=== PATIENT | male | born 1955 | race Caucasian/White ===

== ENCOUNTER 2020-10-30 13:34 | Emergency (ER) | payer MEDICARE, OTHER ==
[~2020-10-30] VITALS: Ht 180.3 cm; Wt 113.4 kg
[2020-10-30] MEDS ORDERED: METFORMIN HCL500 MG PO (17:33)
[2020-10-30] MEDS ORDERED: ELIQUIS2.5 MG PO (17:34)
[2020-10-30] MEDS ORDERED: ABILIFY5 MG PO (17:36)
[2020-10-30] MEDS ORDERED: GLIPIZIDE ER10 MG PO (17:36)
[2020-10-30] MEDS ORDERED: DRIZALMA SPRINK60 MG PO (17:36)
[2020-10-30] MEDS ORDERED: CARBIDOPA-LEVO1 EA10 PO (17:36)
[2020-10-30] MEDS ORDERED: GLUCOPHAGE1000 MG PO (17:37)
[2020-10-30] MEDS ORDERED: TRIHEXYPHENIDYL5 MG PO (17:37)
[2020-10-30] MEDS ORDERED: LIPITOR40 MG PO (17:37)
[2020-10-30] MEDS ORDERED: BASAGLAR K100 UNIT/1 SQ (17:38)
[2020-10-30] MEDS ORDERED: ELIQUIS5 MG PO (17:38)
[2020-10-30] MEDS ORDERED: LAMICTAL25 MG PO (17:39)
[2020-10-30] MEDS ORDERED: PROTONIX40 MG PO (17:39)
[2020-10-30] MEDS ORDERED: NOVOLOG FL100 UNIT/1 SUB-Q (17:39)
== END 2020-10-30 19:15 | disposition home or self-care (01) ==
LOC: ED 13:34
DX: J06.9 Acute upper respiratory infection, unspecified (principal); I25.2 Old myocardial infarction; Z86.73 Personal history of transient ischemic attack (TIA), and cerebral infarction without residual deficits; Z79.899 Other long term (current) drug therapy; Z79.4 Long term (current) use of insulin
CPT/HCPCS: 99283; C9803; U0003

== ENCOUNTER 2021-07-01 11:46 | Emergency (ER) | payer MEDICARE, OTHER ==
[~2021-07-01] VITALS: Ht 180.3 cm; Wt 114.3 kg
[~2021-07-01 11:46] MED LIST: ABILIFY5 MG PO; BASAGLAR K100 UNIT/1 SQ; CARBIDOPA-LEVO1 EA10 PO; DRIZALMA SPRINK60 MG PO; ELIQUIS2.5 MG PO; ELIQUIS5 MG PO; GLIPIZIDE ER10 MG PO; GLUCOPHAGE1000 MG PO; LAMICTAL25 MG PO; LIPITOR40 MG PO; METFORMIN HCL500 MG PO; NOVOLOG FL100 UNIT/1 SUB-Q; PROTONIX40 MG PO; TRIHEXYPHENIDYL5 MG PO
== END 2021-07-01 15:57 | disposition home or self-care (01) ==
LOC: ED 11:46
DX: U07.1 COVID-19 (principal); I25.2 Old myocardial infarction; Z87.891 Personal history of nicotine dependence; Z79.899 Other long term (current) drug therapy; Z79.82 Long term (current) use of aspirin; Z79.4 Long term (current) use of insulin
CPT/HCPCS: 99283-25; M0243; Q0244

== ENCOUNTER 2022-11-28 15:52 | Observation (INO) | payer MEDICARE, OTHER ==
[~2022-11-28] VITALS: Ht 180.3 cm; Wt 114.0 kg
[~2022-11-28 15:52] MED LIST changes: -BASAGLAR K100 UNIT/1 SQ; +BASAGLAR K100 UNIT/1 SUB-Q
--- OUTSIDE RECORDS SUMMARY | 2022-11-28 15:55 | XMS ---
PreManage Notification: LEANN MCDERMOTT Security Director Clinical Pharmacology Events No recent Security Events currently on file CRITERIA MET - PDMP CARE PROVIDERS DANNY HARRIS 12/02/2019-Current PHONE: Unknown Preethi has no Care Guidelines for this patient. E.Arslan VISIT COUNT (12 MO.) 1 [facility] 1 LULA Costello TOTAL 2 NOTE: Visits indicate total known visits. ED/C VISIT TRACKING (12 MO.) 11/28/2022 15:52 [facility] [place] TYPE: Emergency COMPLAINT: - POSS STROKE 05/11/2022 17:24 [facility] [place] TYPE: Emergency DIAGNOSES: - Chest Pain - Dyspnea, unspecified - Chest pain, unspecified - Atherosclerotic heart disease of [place] coronary artery without angina pectoris - Shortness of Breath INPATIENT VISIT TRACKING (12 MO.) 05/11/2022 17:24 [facility] [place] TYPE: Cardiology DIAGNOSES: - Dyspnea, unspecified - Other forms of dyspnea - Chest pain, unspecified - Atherosclerotic heart disease of [place] coronary artery with other forms of angina pectoris - Unspecified injury of head, initial encounter - 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
[2022-11-28] MEDS ORDERED: OXYCODONE HCL5 MG PO (19:10)
--- NOTE | 2022-11-28 21:15 | NUR ---
ASSUMED CARE OF PATIENT UPON RECEIVING BEDSIDE HANDOFF REPORT FROM ED NURSE IN ED. TRANSPORTED PT TO CCU ON STRETCHER. TRANSFERRED PT TO BED. PT AOX4, PT WITH INTRACTABLE LEFT SHOULDER PAIN. WILL MEDICATE PER MAR AND UTILIZE COLD THERAPY WITH ICE PACKS. REMAINS AT BEDSIDE. WILL CONTINUE TO MONITOR AND FOLLOW POC.
--- NOTE | 2022-11-29 | NUR ---
Repeat assessment performed with no acute change since previous assessment unless noted. All vital signs stable with no complaints or indications of respiratory distress, fever or pain. Compazine 10mg IVP was administered for complaints of nausea. Will continue to monitor.
--- NOTE | 2022-11-29 07:04 | NUR ---
PT WITH NO ADVERSE OVERNIGHT EVENTS. VSS, PAIN BEING CONTROLLED WITH PHARMACOLOGIC AND COLD THERAPY. AT BEDSIDE. PT WITH NO OTHER C/O. PT WITH SLING TO LEFT SHOULDER. BEDSIDE HANDOFF REPORT GIVEN TO DAY NURSE.
--- NOTE | 2022-11-29 08:17 | NUR ---
IN PATIENT'S ROOM FOR ASSESSMENT, VITALS, AND BREAKFAST. PT'S CBG 159 THIS AM. PT ALERT, ORIENTED, AND CONVERSING. PT'S SUSY IN ROOM AND ATTENTIVE TO PATIENT. BREAKFAST BROUGHT INTO ROOM. PT STATES PAIN IS TOLERABLE WHEN LAYING IN BED AND NOT MOVING, BUT WHEN MOVING, PAIN IS VERY SEVERE. CMS IS INTACT ON LEFT ARM. PLAN OF CARE DISCUSSED. IVF CONTINUE AT 125 ML/HR. CONTINUE TO MONITOR.
[2022-11-29] MEDS ORDERED: FLUDROCORTISON0.1 MG PO (08:47)
[2022-11-29] MEDS ORDERED: DULOXETINE HCL60 MG PO (08:47)
[2022-11-29] MEDS ORDERED: GLIPIZIDE ER2.5 MG PO (08:49)
[2022-11-29] MEDS ORDERED: OMEPRAZOLE20 MG PO (08:56)
[2022-11-29] MEDS ORDERED: CLOPIDOGREL75 MG PO (08:57)
--- NOTE | 2022-11-29 09:10 | NUR ---
Spoke with pt and . Pt is very painful in his L shoulder. states concern about pt going home. Pt is on pain medication and does not want assistance or agree to any suggestions makes. They live in a house with 0 steps. Toilet is low and does not have a rail. Pt has a walker at home, but will not be able to use due to his fx shoulder. Blood sugars have stabilized, states pt has issue with balance as he has Parkinsons. also has questions where pt will need to follow up for his shoulder surgery. I will contact Dr. Hay.
--- NOTE | 2022-11-29 10:00 | NUR ---
Texted Dr. Hay and asked who he would recommend for Ortho for this pt. Let him know the wants to stay close to [place]. He suggested Dr. Cavazos in [place]. Name and phone number given to . Let her know she needs to contact her PCP for a referral. is wanting a wc for this pt. Let her know PT suggested a cane. Pt is refusing a wc. Gave the infor for [employer] lending closet and encouraged to get a cane and a wc if this is her desire. She states she will not be able to lift pt. Pt will stay one more day per Dr. Palacios for PT.
[2022-11-29] MEDS ORDERED: CARBIDOPA-LEVO1 EAC5 PO (10:15)
[2022-11-29] MEDS ORDERED: TAMSULOSIN HCL0.4 MG PO (10:16)
[2022-11-29] MEDS ORDERED: METFORMIN HCL500 M1 PO (10:17)
--- NOTE | 2022-11-29 10:23 | NUR ---
PATIENT UP TO CHAIR WITH 2 PERSON ASSIST. PT TOLERATED THIS FAIR, BUT DID HAVE A FAIRLY SIGNIFICANT INCREASE IN PAIN WITH MOVEMENT. 2ND DOSE OF OXYCODONE GIVEN AT THIS TIME WELL TYLENOL. PHYS THERAPY IN ROOM AT THIS TIME TO HELP. BED LINEN CHANGED. WARM BLANKET GIVEN. PT'S VERY APPREHENSIVE ABOUT TAKING PATIENT HOME TODAY AND WOULD LIKE HIM TO STAY ANOTHER DAY IF POSSIBLE. WILL DISCUSS WITH MD ALL OF THESE THINGS.
--- NOTE | 2022-11-29 12:00 | NUR ---
VITALS CHARTED. PATIENT SITTING IN RECLINER, LEGS ELEVATED. IN ROOM. LUNCH PROVIDED, LEGS LOWERED AND PATIENT SITTING STRAIGHT TO EAT, FRESH ICE WATER PROVIDED. PATIENT VERY PAINFUL WITH MOVEMENT.
--- NOTE | 2022-11-29 12:04 | NUR ---
PT ALERT, ORIENTED AND SITTING IN CHAIR WITH L SHOULDER/ARM IMMOBILIZED. PT IS VISITING WITH SON HIRO. GOOD VISIT, PT SAID HE IS NO LONGER PRACTICING [employer] ZOROASTRIANISM. MORE FAMILY ARRIVE, GAVE BLESS AND G.POST.
--- NOTE | 2022-11-29 12:59 | NUR ---
PATIENT HELPED BACK TO BED AND IS NOW RESTING. PT'S REMAINS IN ROOM. PLAN OF CARE DISCUSSED. PT GIVEN NEXT DOSE OF PAIN MEDICATION - SEE EMAR. PT HAS CONTINUED TO HAVE 9/10 PAIN IN THAT LEFT SHOULDER. ICE APPLIED. PT WILL TRANSFER TO THE MEDICAL FLOOR TODAY WITHOUT TELEMETRY.
--- NOTE | 2022-11-29 13:08 | EKG ---
[facility] [address] [facility] [place] [address] Signed Normal sinus rhythm Prolonged QT Abnormal ECG No previous ECGs available Confirmed by PAULO PATIÑO MD ([id number]) on 11/29/2022 1:08:12 PM Electronically Signed By: PAULO PATIÑO MD 11/29/22 1308 PATIENT NAME: LEANN MCDERMOTT Electrocardiogram DATE OF : 55 PHYSICIAN: PAULO PATIÑO MD REPORT #: [id number] REPORT IS CONFIDENTIAL AND NOT TO BE RELEASED WITHOUT AUTHORIZATION
--- NOTE | 2022-11-29 13:51 | NUR ---
PATIENT STOOD TO VOID WITH THE HELP OF THIS RN. PT ABLE TO VOID 200 ML OF CONCENTRATED URINE. ENCOURAGED PATIENT TO INCREASE ORAL INTAKE. PT AGREEABLE. REPORT GIVEN TO RN ON MED/SURG WHO WILL RESUME CARE OF PATIENT. PATIENT TRANSFERRED IN BED TO ROOM 114, ALONG WITH ALL PERSONAL BELONGINGS.
--- NOTE | 2022-11-29 13:53 | NUR ---
CRYO CUFF BEING SET UP FOR PATIENT TO GO HOME WITH.
--- NOTE | 2022-11-29 14:04 | NUR ---
Received report from Merlyn at CCU. Pt brought over in bed to Med Surg.
[2022-11-29] MEDS ORDERED: OXYCODONE-ACET1 EAC1 PO (14:27)
--- NOTE | 2022-11-29 14:28 | NUR ---
MED REC COMPLETE
--- NOTE | 2022-11-29 15:04 | NUR ---
PATIENT RESTING IN BED WITH FAMILY IN THE ROOM. FAMILY IS CALLING MULTIPLE ORTHO SURGEONS TRYING TO FIND A PLACE PATIENT CAN GO FOR SURGERY. FAMILY IS VERY STRESSED OUT TRYING TO GET RECORDS SENT OVER TO PLACES. PT GIVEN PAIN MEDICATIONS, CRYO CUFF THERAPY GOING ON LEFT SHOULDER.
--- NOTE | 2022-11-29 17:31 | NUR ---
PATIENT EATTING DINNER SITTING UP IN BED WITH FAMILY IN THE ROOM. PT STILL C/O PAIN. MEDICATIONS GIVEN, CRYO CUFF ON LEFT SHOULDER.
--- NOTE | 2022-11-29 19:25 | NUR ---
HANDOFF REPORT RECEIVED FROM DAY SHIFT RN. PT RESTING IN BED. ARM IN SLING. PT STATES PAIN IS OK AT THIS TIME. PT DENIES NEEDS, FAMILY AT BEDSIDE.
--- NOTE | 2022-11-29 21:15 | NUR ---
PT STANDING AT EDGE OF BED, USING URINAL WITH ASSISTANCE FROM , THEN SITTING AT EDGE OF BED. PT ON ROOM AIR, LUNG SOUNDS CLEAR, DENIES SOB. PT WITH REPORT OF PAIN 10/10 TO LEFT SHOULDER WITH ANY MOVEMENT 8/10 WITH REST, GIVEN 10 MG OXYCODONE AND 1000 MG TYLENOL, DISCUSSED MORPHINE FOR ADDITIONAL PAIN MEDICATION AND WILL REASSESS. BOWEL TONES ACTIVE, DENIES NAUSEA. CMS INTACT, WITHOUT EDEMA, DENIES CALF PAIN. BLOOD GLUCOSE 271, GIVEN 3 UNITS SS HUMALOG. DISCUSSED PLAN OF CARE FOR THE EVENING. PT ASSISTED TO LAYING IN BED. CRYOCUFF FILLED WITH ICE. PT DENIES OTHER NEEDS AT THIS TIME.
--- NOTE | 2022-11-29 21:30 | NUR ---
CRYO CUFF FILLED WITH ICE.
--- NOTE | 2022-11-29 21:43 | NUR ---
PT RATING PAIN 7/10 AND DECREASING, DECLINING MORPHINE AT THIS TIME, DISCUSSED TO CALL NEEDED. PT DENIES OTHER NEEDS AT THIS TIME.
--- NOTE | 2022-11-30 00:45 | NUR ---
PT CAME TO NURSES STATION FOR WATER, PROVIDED. PT RESTING IN BED, RATING PAIN 4/10 AT THIS TIME, JUST RETURNED FROM THE BATHROOM AND STATES PAIN WAS NOT SEVERE PREVIOUS MOVEMENT. GIVEN 10 MG OXYCODONE PER PT REQUEST. PT BLOOD GLUCOSE 266 GIVEN 3 UNITS SS HUMALOG. PT REPOSITIONED IN BED. ICE REPLENISHED IN CRYOCUFF. PT DENIES OTHER NEEDS AT THIS TIME.
--- NOTE | 2022-11-30 01:30 | NUR ---
PT RESTING IN BED. PT RATING PAIN 10/10, UNABLE TO GET COMFORTABLE, THROBBING IN LEFT SHOULDER. GIVEN 4 MG IV MORPHINE. IV X2 FLUSHED. DRESSING TO RIGHT WRIST IV CHANGED. PT DENIES OTHER NEEDS AT THIS TIME, RESTING ON COUCH.
--- NOTE | 2022-11-30 02:15 | NUR ---
REPORT RECEIVED FROM AMIRA MAHONEY. ASSUMED CARE OF pt.
--- NOTE | 2022-11-30 03:23 | NUR ---
IN pt ROOM FOR SCHEDULED ACCU CHECK. SS INSULIN ADMINISTERED PER ORDERS. pt AWAKE WHEN RN ENTERS ROOM. ASSESSMENT COMPLETE. CSM INTACT. pt STATES PAIN IS "PRETTY GOOD RIGHT NOW" RATES 6/10. DENIES NEED FOR PAIN MEDICATION. DENIES TOILETING NEEDS. ASSISTED TO REPOSITION HIGHER IN BED WITH TWO PERSON ASSIST. SHOULDER IMMOBILIZER IN PLACE. CRYO CUFF WITH ICE ON. CALL LIGHT PLACED ACROSS STOMACH, IN REACH FOR pt. DRINK OF WATER PROVIDED.
--- NOTE | 2022-11-30 05:07 | NUR ---
CHECKED ON pt. RESTING IN BED, SNORING, NO DISTRESS NOTED.
--- NOTE | 2022-11-30 06:00 | NUR ---
pt SLEEPING, AWAKENS TO VOICE FOR CBG. VS COMPLETE, STABLE. pt RATES PAIN 8-9/10 WITH MOVEMENT IN LEFT SHOULDER. IMMOBILIZER IN PLACE. SBA TO RESTROOM FOR UNMEASURED VOID IN TOILET. pt BACK TO BED, CRYO CUFF REFILLED AND IN PLACE. PRN PAIN MEDICATION ADMINISTERED WITH PO SNACK. ICE WATER REFILLED AND IN REACH. CALL LIGHT NEXT TO RIGHT HAND. NO ADDITIONAL REQUESTS.
--- NOTE | 2022-11-30 07:10 | NUR ---
report from lelia rn, pt and in room sleeping, call light in reach.
--- NOTE | 2022-11-30 07:40 | NUR ---
PT RESTING IN BED. PRESENT IN ROOM. STUDENT RN AND I BEAUTY ARTIST IN ROOM. BS COMPLETE. RN NOTIFIED. NO NEEDS. CALL LIGHT WITHIN REACH
--- NOTE | 2022-11-30 08:45 | NUR ---
PT AMB WELL TO BATHROOM VOID, NO BM - EDUCATED ON PAIN MEDS AND CONSTIPATION - STOOL SOFTNER PO GIVEN WITH AM MEDS, BS CHECKED AD INSULIN 2 UNITS GIVEN R ARM. PT BACK TO BED, FAN PROVIDED FOR COMFORT - DIAPHORETIC, COOL CLOTH GIVEN, PAIN 8/10 WITH MOVEMENT IN LEFT SHOULDER/NECK AREA - PO TYLENOL GIVEN.
--- NOTE | 2022-11-30 10:10 | NUR ---
in room for rounds with dr, PT, and pt. discussed blood sugar routine and changes for plan of care and pain control. pt given lactulose for constipation. went home to get home meter to cross refrence with ours.
--- NOTE | 2022-11-30 10:39 | NUR ---
PT ALERT, ORIENTED AND VISITING WITH HIS AT BS. PT IS UNCOMFORTABLE NIGHT WAS CHALLENGING. POC DISCUSSED, PTS' EXPRESSED SOME DISMAY IN FEELING DIFFICULTY IN GETTING HELP FOR PTS' SHOULDER-ESPECIALLY WITH MED ISSUES PT HAS. SHE FEELS SHE CANNOT CARE FOR PT AT HOME WITH HIS PRESENT NEEDS. GAVE ENCOURAGEMENT, DR COBB IN TO VISIT. WILL FOLLOW
--- NOTE | 2022-11-30 10:47 | NUR ---
Spoke with Irineo. He plans on staying one more day due to pain. Notified by Dr. Palacios, pt will need . Discussed with pt we currently have one service available in our area. He states he will appreciate the help from anyone. is out of room and has gone to get pt's glucometer as there is a questions if the Dexacom is working properly. Called Misa at , she requests the referal today and she will be able to have nursing admit on Monday. I will print the chart and notify Dr. Palacios.
--- NOTE | 2022-11-30 11:15 | NUR ---
Returned to pts room, present. UPdated [facility] will be able to see Keith on Monday and they will contact them to schedule and appt. would like a bath aid. Discussed needs for DME and will go to [employer] and get a raised toilet seat, wc, and shower chair. I gave her their contract to complete and I will fax it to [employer] [facility].
--- NOTE | 2022-11-30 11:36 | NUR ---
PT IN BED RESTING. PRESENT IN ROOM. BS TAKEN BY STUDENT RN. RN NOTIFIED. NO NEEDS. CALL LIGHT WITHIN REACH
--- NOTE | 2022-11-30 12:36 | NUR ---
Facesheet, referral, covid test, H&P, progress notes, med list, sliding scale, PT/OT notes faxed to Misa at [facility]. I called and spoke with Misa they will need an extension for the PT/OT until the 25. Dr. Palaciso signed.
--- NOTE | 2022-11-30 14:31 | NUR ---
PT RESTING IN BED, HIS AND SON AT BS. FEEL MUCH BETTER ABOUT FURTHER TREATMENT PLAN, BELIEVE GOD QUICKLY ANSWERED THEIR PRAYER! GAVE G.POST, BLESSING AND WILL FOLLOW
--- NOTE | 2022-11-30 15:42 | NUR ---
PERMIT AGENT IN WITH PT AND FAMILY. MED. RELEASE SIGNED FOR REBOUND ORTHO IN [place].
--- NOTE | 2022-11-30 19:05 | NUR ---
REPORT RECEIVED FROM SONALI Stratton RN. PT LAYING IN BED. PT REPROTS NO NEEDS AT THIS TIME. CALL LIGHT IN REACH. IN ROOM.
--- NOTE | 2022-11-30 21:02 | NUR ---
IN pt ROOM CALL LIGHT DISCONNECTED FROM WALL. pt BACK IN BED AFTER UP TO RESTROOM FOR VOID WITH SBA. pt RATES PAIN 8/10 WITH MOVEMENT, 7/10 AT REST IN LEFT SHOULDER. IMMOBILIZER IN PLACE. PRN PAIN MEDICATION ADMINISTERED. CRYO CUFF IN PLACE. VSS. SCHEDULED MEDICATIONS ADMINISTERED. ACCU CHECK COMPLETE, COMPARED WITH HOME MACHINES AND DOCUMENTED ON PAPER CHART. SS INSULIN ADMINISTERED PER ORDERS. LIGHTS OFF IN ROOM. PO SNACK AND WATER PROVIDED WITH PAIN MEDICATIONS. CALL LIGHT IN REACH. UP IN CHAIR.
--- NOTE | 2022-11-30 21:16 | NUR ---
Filled cryo machine with ice and brought patient warm blanket. is in room with patient.
--- NOTE | 2022-11-30 21:38 | NUR ---
ASSESSMENT COMPLETE. PT REPORTING PAIN 6/10 IN LEFT SHOULDER. PRN PAIN MEDICATION ADMINISTERED PREVIOUSLY. LUNG SOUNDS CLEAR BOWEL TONES HYPOACTIVE. LEFT SHOULDER IN SLING. CYRO CUFF IN PLACE. PRN LACTULOSE ADMINISTERED, SEE MAR. PT REPORTS NO OTHER NEEDS AT THIS TIME. CALL LIGHT IN REACH. IN ROOM.
--- NOTE | 2022-11-30 22:36 | NUR ---
IN TO ROUND ON PT. PT REPORTING PAIN 7/10 IN L SHOULDER. PRN PAIN MEDICATION ADMINISTERED, SEE MAR. PT REPORTS NO OTHER NEEDS AT THIS TIME. CALL LIGHT IN REACH. BED ALARM ON.
--- NOTE | 2022-12-01 00:03 | NUR ---
IN ROOM TO ROUND NO PT. PT REPORTING PAIN 5/10 IN L SHOULDER. INSULIN ADMINISERED, SEE MAR. PT UP TO RESTROOM AND BACK TO BED WITH ASSISTANCE FROM . CRYO CUFF PLACED TO L SHOULDER. PT RESTING IN BED REPORTING NO OTHER NEEDS AT THIS TIME. CALL LIGHT IN REACH. BED ALARM ON.
--- NOTE | 2022-12-01 01:53 | NUR ---
BED ALARM SOUNDING. pt TO SIDE OF BED INDEPENDENTLY. REMINDED pt TO USE CALL LIGHT. pt VERBALIZES UNDERSTANDING. SBA TO RESTROOM, NO VOID. pt STATES "WELL I GUESS I DIDN'T HAVE TO GO". BACK TO BED. BED ALARM ON. IN ROOM ON COUCH, AWAKENS TO pt GETTING UP. CALL LIGHT IN REACH.
--- NOTE | 2022-12-01 03:04 | NUR ---
IN TO ADMINISTER MEDICATION, SEE MAR. PT TOLERATES SUB-Q INJECTION WELL. PT REPORTING PAIN 5/10 IN LEFT SHOULDER. PT DENIES ANY PAIN MEDICATION WHEN OFFERED. PT REPORTS NO OTHER NEEDS AT THIS TIME. CALL LIGHT IN REACH. BED ALARM ON. IN ROOM.
--- NOTE | 2022-12-01 03:25 | NUR ---
CHECKED ON pt. RESTING IN BED AWAKE. RATES PAIN 8/10 IN LEFT SHOULDER. CRYO CUFF ADJUSTED. PRN PAIN MEDICATION ADMINISTERED WITH CRACKERS. CALL LIGHT IN REACH. DENIES TOILETING OR ADDITIONAL NEEDS.
--- NOTE | 2022-12-01 06:18 | NUR ---
IN TO ADMINISTER MEDICATIONS, SEE MAR. PT REPORTING PAIN 9/10 IN L SHOULDER. PRN PAIN MEDICATION ADMINISTERED, SEE MAR. ASSESSMENT COMPLETE. LUNG SOUNDS CLEAR. BOWEL TONES ACTIVE. LEFT SHOULDER IN SLING WITH CRYO CUFF IN PLACE. BRUISING NOTED TO LEFT UPPER ARM. PT DENIES RESTROOM NEEDS AT THIS TIME. PT DENIES ANY OTHER NEEDS AT THIS TIME. CALL LIGHT IN REACH. IN ROOM.
--- NOTE | 2022-12-01 06:58 | NUR ---
IV DRESSING CHANGED. PT TOLERATED WELL. PT REPORTS NO OTHER NEEDS AT THIS TIME. CALL LIGHT IN REACH.
--- NOTE | 2022-12-01 07:20 | NUR ---
report from sosa carrizales, pt with in room, recently up to void, ice to left shoulder - recently medicated for pain, [facility] wnl. next bs check 8 am. call light in reach.
--- NOTE | 2022-12-01 08:50 | NUR ---
DR PATIÑO IN TO ASSESS PT AND HERE. REVIEW BS AND SLIDING SCALE. PLAN FOR DC AND FOLLOW UP.
[2022-12-01] MEDS ORDERED: SENNA8.6 MG PO (09:19)
[2022-12-01] MEDS ORDERED: OXYCODONE HCL10 MG PO (09:19)
[2022-12-01] MEDS ORDERED: LACTULOSE10 GM/152 PO (09:20)
[2022-12-01] MEDS ORDERED: NARCAN4 MG NAS (09:23)
[2022-12-01] MEDS ORDERED: BAQSIMI3 MG NAS (09:25)
[2022-12-01] MEDS ORDERED: ACETAMINOPHEN500 MG PO (09:25)
[2022-12-01] MEDS ORDERED: MAG-OXIDE400 MG PO (09:26)
[2022-12-01] MEDS ORDERED: KLOR-CON 1010 MEQ PO (09:26)
[2022-12-01] MEDS ORDERED: NOVOLOG FL100 UNIT/1 SUB-Q (09:27)
[2022-12-01] MEDS ORDERED: BASAGLAR K100 UNIT/1 SUB-Q (09:28)
--- NOTE | 2022-12-01 12:22 | NUR ---
PT AMB TO BR FOR BM - DRESSED AND READY FOR LUNCH. PO PAIN MEDS GIVEN FOR PAIN LEFT SHOULDER DC INST. REVIEWED.
--- NOTE | 2022-12-01 14:19 | NUR ---
PT IN BR, HIS CAME OUT AND VISITED A MOMENT. FEELS BETTER NOW A PLAN IS IN PLACE. SURGERY LATER THIS MONTH. THANKED ME FOR MINISTRY OF PRESENCE. GAVE ENCOURAGEMENT AND BLESSING. PT IS TO DC HOME LATER TODAY
--- NOTE | 2022-12-01 14:30 | NUR ---
Spoke with pt and . Son picked up a wc and other DME from [employer]. I received a call from [facility] asking if pt is discharging today as they plan to admit tomorrow. Updated Misa from will call her today. They plan on dc to home shortly.
== END 2022-12-01 13:18 | disposition home or self-care (01) ==
LOC: ED 15:52 → MS 15:53 → CCU 15:53 → MS 11-29 13:40
PROVIDERS: ADMIT Internal Medicine; ATTEND Internal Medicine
DX: E11.641 Type 2 diabetes mellitus with hypoglycemia with coma (principal); R56.9 Unspecified convulsions; T38.3X2A Poisoning by insulin and oral hypoglycemic [antidiabetic] drugs, intentional self-harm, initial encounter; S42.292A Other displaced fracture of upper end of left humerus, initial encounter for closed fracture; E86.0 Dehydration; E87.6 Hypokalemia; E83.42 Hypomagnesemia; K59.03 Drug induced constipation; T40.0X5A Adverse effect of opium, initial encounter; E11.22 Type 2 diabetes mellitus with diabetic chronic kidney disease; N18.9 Chronic kidney disease, unspecified; I25.10 Atherosclerotic heart disease of native coronary artery without angina pectoris; G20 Parkinson's disease; F39 Unspecified mood [affective] disorder; E78.5 Hyperlipidemia, unspecified; Z86.711 Personal history of pulmonary embolism; Z95.5 Presence of coronary angioplasty implant and graft; Z87.891 Personal history of nicotine dependence; Z79.4 Long term (current) use of insulin; Z79.01 Long term (current) use of anticoagulants; Z79.899 Other long term (current) drug therapy; Z20.822 Contact with and (suspected) exposure to COVID-19
CPT/HCPCS: 36415; 71045; 73030; 73200; 80048; 80053; 83036; 83735; 84484; 85025; 93005; 93010; 96365; 96366; 96367; 96375; 96376; 97110; 97116; 97162; 97166; A9270; G0378; G0480; J1170; J1815; J2060; J2270; J3475; J3480; J7120; U0003

== ENCOUNTER 2023-02-07 12:30 | Emergency (ER) | payer OTHER, MEDICARE ==
[~2023-02-07] VITALS: Ht 180.3 cm; Wt 104.3 kg
[~2023-02-07 12:30] MED LIST changes: +ACETAMINOPHEN500 MG PO; +BAQSIMI3 MG NAS; +CARBIDOPA-LEVO1 EAC5 PO; +CLOPIDOGREL75 MG PO; +DULOXETINE HCL60 MG PO; +FLUDROCORTISON0.1 MG PO; +GLIPIZIDE ER2.5 MG PO; +KLOR-CON 1010 MEQ PO; +LACTULOSE10 GM/152 PO; +MAG-OXIDE400 MG PO; +METFORMIN HCL500 M1 PO; +NARCAN4 MG NAS; +OMEPRAZOLE20 MG PO; +OXYCODONE HCL10 MG PO; +OXYCODONE HCL5 MG PO; +OXYCODONE-ACET1 EAC1 PO; +SENNA8.6 MG PO; +TAMSULOSIN HCL0.4 MG PO
--- OUTSIDE RECORDS SUMMARY | 2023-02-07 12:32 | XMS ---
PreManage Notification: LEANN MCDERMOTT Security Access Developer Events No recent Security Events currently on file CRITERIA MET - [facility] - [facility] - 2 Visits in 30 Days CARE PROVIDERS JULIA DEWEY Nurse Practitioner: Family Current PHONE: [phone] DANNY HARRIS Hospitalist 12/02/2019-Current PHONE: [phone] Preethi has no Care Guidelines for this patient. EBrandon. VISIT COUNT (12 MO.) 1 [facility] [place] 1 [facility] 2 [facility] TOTAL 4 NOTE: Visits indicate total known visits. ED/UCC VISIT TRACKING (12 MO.) 02/07/2023 12:30 [facility] TYPE: Emergency COMPLAINT: - FALL, BLOODY NOSE 01/16/2023 12:02 [facility] Letitia [place] TYPE: Emergency DIAGNOSES: - BP issues - Hypotension - Other chest pain - Chest Pain 11/28/2022 15:52 [facility] [place] TYPE: Emergency COMPLAINT: - POSS STROKE 05/11/2022 17:24 [facility] [place] TYPE: Emergency DIAGNOSES: - Chest Pain - Dyspnea, unspecified - Chest pain, unspecified - Atherosclerotic heart disease of [place] coronary artery without angina pectoris - Shortness of Breath INPATIENT VISIT TRACKING (12 MO.) 11/28/2022 15:53 [facility] [place] TYPE: Observation COMPLAINT: - HYPOGLYCEMIC SEIZURE INTRACTABLE L SHOULDER FRACTU DIAGNOSES: - Hypokalemia - [facility] (current) use of insulin - Dehydration - Contact with and (suspected) exposure to COVID-19 - Adverse effect of opium, initial encounter - Atherosclerotic heart disease of [place] coronary artery without angina pectoris - Personal history of nicotine dependence - Unspecified mood [affective] disorder - Poisoning by insulin and oral hypoglycemic [antidiabetic] drugs, intentional self-harm, initial encounter - Unspecified convulsions - Type 2 diabetes mellitus with hypoglycemia with coma - Hypomagnesemia - Type 2 diabetes mellitus with diabetic chronic kidney disease - Hyperlipidemia, unspecified - Parkinson's disease - Other displaced fracture of upper end of left humerus, initial encounter for closed fracture - 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 - Presence of coronary angioplasty implant and graft - Personal history of pulmonary embolism - Chronic kidney disease, unspecified - Drug induced constipation - Other senior care (current) drug therapy 05/11/2022 17:24 [facility] [place] TYPE: Cardiology DIAGNOSES: - Orthostatic hypotension - Mixed hyperlipidemia - Depression, unspecified - Atherosclerotic heart disease of [place] coronary artery without angina pectoris - Dyspnea, unspecified - Other forms of dyspnea - Chest pain, unspecified - Atherosclerotic heart disease of [place] coronary artery with other forms of angina pectoris - Unspecified injury of head, initial encounter - 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
[2023-02-07] MEDS ORDERED: PANTOPRAZOLE SO40 MG PO (12:50)
[2023-02-07] MEDS ORDERED: AMOXICILLIN500 MG PO (15:18)
== END 2023-02-07 15:46 | disposition home or self-care (01) ==
LOC: ED 12:30
DX: R04.0 Epistaxis (principal); S00.33XA Contusion of nose, initial encounter; W01.0XXA Fall on same level from slipping, tripping and stumbling without subsequent striking against object, initial encounter; G20 Parkinson's disease; I25.2 Old myocardial infarction; Z87.891 Personal history of nicotine dependence; Z79.01 Long term (current) use of anticoagulants
CPT/HCPCS: 70450; 70486; A9270